=== PATIENT | female | born 1955 | race American Indian/Alaskan Native ===

== ENCOUNTER 2017-12-24 09:23 | Emergency (ER) | payer OTHER ==
[2017-12-24 09:23] VITALS: BMI 27.4
[2017-12-24 10:05] VITALS: RESP 18; TEMP 98.7
[2017-12-24 11:43] LABS: BASO # 0.01 K/mm3 (0.0-2.0); BASO % 0.1 % (0.0-3.0); EOS # 0.1 (0.0-0.7); EOS % 1.1 % (1.5-5.0); GRAN % 69.6 % (50.0-68.0); HEMOGLOBIN 13.1 g/dL (12.0-16.0); LYMPH # 2.3 (1.2-3.4); LYMPH % 23.3 % (22.0-35.0); MEAN CELL VOLUME 87.6 fl (80.0-105.0); MEAN CORPUSCULAR HGB CONC 33.1 g/dl (31.0-37.0); MEAN PLATELET VOLUME 10.9 fl (7.0-11.0); MONO # 0.6 (0.1-0.6); MONO % 5.9 % (1.0-6.0); RBC 4.52 10^6/uL (3.5-6.1); RED CELL DISTRIBUTION WIDTH 13.8 % (11.5-14.5); WHITE BLOOD COUNT 10.1 10^3/ul (4.5-11.0)
[2017-12-24 11:53] LABS: ALB/GLOB RATIO 1.3 (1.1-1.8); ALBUMIN 4.3 g/dL (3.0-4.8); ALT/SGPT 38 U/L (7-56); AST/SGOT 25 U/L (14-36); BLOOD UREA NITROGEN 12 mg/dL (7-21); CALCIUM 10.2 mg/dL (8.4-10.5); GFR AFRICAN-AMERICAN > 60; GFR NON-AFRICAN AMERICAN > 60
[2017-12-24 12:02] LABS: B-TYPE NATRIURETIC PEPTIDE 42.4 pg/mL (0-450)
--- NOTE | 2017-12-24 12:19 | RAD ---
HISTORY: cough COMPARISON: Comparison is made with 02/03/2016 TECHNIQUE: Chest PA and lateral FINDINGS: LUNGS: No active pulmonary disease. PLEURA: No significant pleural effusion identified. No pneumothorax apparent. CARDIOVASCULAR: Normal. OSSEOUS STRUCTURES: No significant abnormalities. VISUALIZED UPPER ABDOMEN: Normal. OTHER FINDINGS: None. IMPRESSION: No active disease.
--- NOTE | 2017-12-24 12:58 | ED PDOC ---
Arrival/HPI - General Chief Complaint: Cough, Cold, Congestion Time Seen by Provider: 12/24/17 10:07 Historian: Patient - History of Present Illness Narrative History of Present Illness (Text): 12/24/17 12:58 62yr old female presents today with 2 week history of cough, nasal congestion, sore throat, sneezing. pt denies cp or sob. no vomiting/diarrhea. denies dizziness or weakness. no sick contacts. pt denies abdominal pain. pt denies fever/chills. denies recent travel. denies leg pain or lower leg swelling. pt states she has been taking nyquil without relief. Time/Duration: > week (2) Symptom Onset: Gradual Symptom Course: Unchanged Past Medical History - Provider Review Nursing Documentation Reviewed: Yes - Travel History Have you recently traveled outside [place] w/in the past 3 mons?: No - Past History Past History: Non-Contributing - Infectious Disease Hx of Infectious Diseases: None - Reproductive Menopause: Yes - Past Medical History Past Medical History: No Previous - Integumentary Hx Dermatological Disorder: No - Musculoskeletal/Rheumatological Hx Musculoskeletal Disorders: No - Psychiatric Hx Substance Use: No - Past Surgical History Past Surgical History: No Previous - Anesthesia Hx Anesthesia: No - Suicidal Assessment Feels Threatened In Home Enviroment: No Family/Social History - Physician Review Nursing Documentation Reviewed: Yes Family/Social History: Unknown Family HX Smoking Status: Never Smoked Hx Alcohol Use: No Hx Substance Use: No Allergies/Home Meds Allergies/Adverse Reactions: Allergies No Known Allergies Allergy (Verified 01/22/16 10:33) Review of Systems - Review of Systems Constitutional: absent: Fatigue, Fevers ENT: Sore Throat, Sinus Congestion Respiratory: Cough. absent: SOB Cardiovascular: absent: Chest Pain, Palpitations Gastrointestinal: absent: Abdominal Pain, Nausea, Vomiting Genitourinary Female: absent: Dysuria, Frequency Musculoskeletal: absent: Arthralgias Skin: absent: Rash, Pruritis Neurological: absent: Headache, Dizziness Psychiatric: absent: Anxiety, Depression Physical Exam Vital Signs Reviewed: Yes Vital Signs Temp Pulse Resp BP Pulse Ox 12/24/17 12:59 75 18 144/75 99 12/24/17 10:01 98.7 F 90 18 140/80 98 Temperature: Afebrile Blood Pressure: Normal Pulse: Regular Respiratory Rate: Normal Appearance: Positive for: Well-Appearing, Non-Toxic, Comfortable Pain Distress: None Mental Status: Positive for: Alert and Oriented X 3 - Systems Exam Head: Present: Atraumatic Extroacular Muscles: Present: EOMI Conjunctiva: Present: Normal Ears: Present: Normal, NORMAL TM Mouth: Present: Moist Mucous Membranes. No: Drooling, Trismus Pharnyx: Present: Normal. No: ERYTHEMA, EXUDATE, TONSILS ENLARGED Nose (External): Present: Atraumatic Nose (Internal): Present: Normal Inspection Neck: Present: Normal Range of Motion Respiratory/Chest: Present: Clear to Auscultation, Good Air Exchange. No: Respiratory Distress, Accessory Muscle Use, Wheezes, Decreased Breath Sounds, Retracting, Tachypneic Cardiovascular: Present: Regular Rate and Rhythm. No: Murmurs Abdomen: No: Tenderness, Rebound, Guarding Back: Present: Normal Inspection. No: CVA Tenderness Lower Extremity: Present: Normal ROM Neurological: Present: GCS=15, Speech Normal Skin: Present: Warm, Dry, Normal Color. No: Rashes Psychiatric: Present: Alert, Oriented x 3 Medical Decision Making ED Course and Treatment: 12/24/17 14:01 Patient is nontoxic well-appearing in no distress. Vital signs are stable. cbc; wnl cmp; wnl bnp; wnl rapid flu; negative cxr; no infiltrate or effusion, no acute disease; as read by the radiologist. Zithromax po I advised follow up with primary care physician within the next 2 days. I advised increase fluids and return if symptoms worsen persist or if new symptoms develop. Patient verbalizes understanding of discharge instructions and need for immediate followup. all aspects of this case were discussed the attending of record. IMPRESSION; cough Motrin one tablet every 6 hours as needed for pain Zithromax one tablet once daily x4 days FLonase; 2 sprays each nostril once daily. Increase fluids Followup with primary care physician the next 2 days Return if symptoms worsen persist or if new symptoms develop - Lab Interpretations Lab Results: 12/24/17 11:30 12/24/17 11:30 Lab Results 12/24/17 11:30: WBC 10.1 D, RBC 4.52, Hgb 13.1, Hct 39.6, MCV 87.6, MCH 29.0, MCHC 33.1, RDW 13.8, Plt Count 252, MPV 10.9, Gran % 69.6 H, Lymph % (Auto) 23.3 , [place] % (Auto) 5.9, Eos % (Auto) 1.1 L, Baso % (Auto) 0.1, Gran # 7.00 H, Lymph # (Auto) 2.3, [place] # (Auto) 0.6, Eos # (Auto) 0.1, Baso # (Auto) 0.01 12/24/17 11:30: Sodium 145, Potassium 4.3, Chloride 105, Carbon Dioxide 28, Anion Gap 16, BUN 12, Creatinine 0.9, Est GFR ( Amer) > 60, Est GFR (Non- Af Amer) > 60, Random Glucose 88, Calcium 10.2, Total Bilirubin 0.4, AST 25, ALT 38, Alkaline Phosphatase 81, NT-Pro-B Natriuret Pep 42.4, Total Protein 7.6 , Albumin 4.3, Globulin 3.3, Albumin/Globulin Ratio 1.3 12/24/17 10:10: Influenza Typ A,B (EIA) Negative for flu a/b - RAD Interpretation Radiology Orders: 12/24/17 10:07 CHEST TWO VIEWS (PA/LAT) [RAD] Stat - Medication Orders Current Medication Orders: Discontinued Medications Azithromycin (Zithromax) 500 mg PO STAT STA PRN Reason: Protocol Stop: 12/24/17 12:29 Last Admin: 12/24/17 12:47 Dose: 500 mg Disposition/Present on Arrival - Present on Arrival Any Indicators Present on Arrival: No History of DVT/PE: No History of Uncontrolled Diabetes: No Urinary Catheter: No History of Decub. Ulcer: No History Surgical Site Infection Following: None - Disposition Have Diagnosis and Disposition been Completed?: Yes Diagnosis: Cough Disposition: HOME/ ROUTINE Disposition Time: 12:55 Patient Plan: Discharge Condition: GOOD Discharge Instructions (ExitCare): Cold Symptoms (ED), Acute Cough (ED) Additional Instructions: Motrin every 6 hours as needed for pain/fever reduction Zithromax one tablet once daily x4 days FLonase; 2 sprays each nostril once daily. Increase fluids Followup with primary care physician the next 2 days Return if symptoms worsen persist or if new symptoms develop: high fevers, chest pain, shortness of breath, dizziness, weakness, continued cough or if any other concerning symptoms develop. Prescriptions: Azithromycin [Zithromax] 250 mg PO DAILY #4 tab Fluticasone Nasal [Flonase] 2 spr NS DAILY #1 spr Referrals: Romie Zhao MD [Staff Provider] - Follow up with primary Faraz Zavala MD [Staff Provider] - Follow up with primary Forms: [employer] (Greek)
[2017-12-24 13:00] VITALS: BP 144/75; PULSE 75; O2SAT 99
== END 2017-12-24 13:02 | disposition home or self-care (01) ==
LOC: ED 09:23
DX: R05 Cough (principal)

== ENCOUNTER 2018-06-03 12:32 | Emergency (ER) | payer OTHER ==
[2018-06-03 12:41] VITALS: TEMP 98.4; BMI 34.3
[2018-06-03 13:43] LABS: BASO # 0.01 K/mm3 (0.0-2.0); BASO % 0.1 % (0.0-3.0); EOS # 0.2 (0.0-0.7); EOS % 1.7 % (1.5-5.0); GRAN # 9.73 (1.4-6.5); GRAN % 75.7 % (50.0-68.0); HEMOGLOBIN 13.3 g/dL (12.0-16.0); LYMPH # 2.4 (1.2-3.4); LYMPH % 18.8 % (22.0-35.0); MEAN CELL VOLUME 84.4 fl (80.0-105.0); MEAN CORPUSCULAR HEMOGLOBIN 28.9 pg (25.0-35.0); MEAN CORPUSCULAR HGB CONC 34.2 g/dl (31.0-37.0); MEAN PLATELET VOLUME 10.3 fl (7.0-11.0); MONO # 0.5 (0.1-0.6); MONO % 3.7 % (1.0-6.0); RBC 4.61 10^6/uL (3.5-6.1); RED CELL DISTRIBUTION WIDTH 13.8 % (11.5-14.5); WHITE BLOOD COUNT 12.8 10^3/ul (4.5-11.0)
[2018-06-03 13:52] LABS: ALB/GLOB RATIO 1.3 (1.1-1.8); ALBUMIN 4.4 g/dL (3.0-4.8); ALT/SGPT 29 U/L (7-56); AST/SGOT 19 U/L (14-36); BLOOD UREA NITROGEN 8 mg/dL (7-21); CALCIUM 9.6 mg/dL (8.4-10.5); GFR AFRICAN-AMERICAN > 60; GFR NON-AFRICAN AMERICAN > 60
--- NOTE | 2018-06-03 13:56 | RAD ---
Date of service: 06/03/2018 HISTORY: cough COMPARISON: 12/24/2017 TECHNIQUE: Chest PA and lateral FINDINGS: LUNGS: No active pulmonary disease. PLEURA: No significant pleural effusion identified. No pneumothorax apparent. CARDIOVASCULAR: Normal. OSSEOUS STRUCTURES: No significant abnormalities. VISUALIZED UPPER ABDOMEN: Normal. OTHER FINDINGS: None. IMPRESSION: No active disease.
--- NOTE | 2018-06-03 15:04 | ED PDOC ---
Arrival/HPI - General Chief Complaint: Flu-like Symptoms Time Seen by Provider: 06/03/18 13:11 Historian: Patient - History of Present Illness Narrative History of Present Illness (Text): 06/03/18 15:08 62-year-old female otherwise healthy presents today with an 8 day history of sore throat and nasal congestion and cough. Patient denies chest pain or shortness of breath. Patient given denies fevers but states she's been having chills at home. Patient describes a sore throat as a achy burning pain worse with swallowing. Denies any difficulty swallowing. Denies feeling of throat closing. Patient complaining of generalized body aches. No sick contacts. No medications have been taken at home. No nausea vomiting diarrhea constipation. No other complaints Past Medical History - Provider Review Nursing Documentation Reviewed: Yes - Travel History Have you recently traveled outside [place] w/in the past 3 mons?: No - Past History Past History: Non-Contributing - Infectious Disease Hx of Infectious Diseases: None - Reproductive Menopause: Yes - Past Medical History Past Medical History: No Previous - Cardiac Hx Cardiac Disorders: No - Pulmonary Hx Respiratory Disorders: No - Neurological Hx Neurological Disorder: No - HEENT Hx HEENT Disorder: No - Renal Hx Renal Disorder: No - Endocrine/Metabolic Hx Endocrine Disorders: No - Hematological/Oncological Hx Blood Disorders: No - Integumentary Hx Dermatological Disorder: No - Musculoskeletal/Rheumatological Hx Musculoskeletal Disorders: No - Gastrointestinal Hx Gastrointestinal Disorders: No - Genitourinary/Gynecological Hx Genitourinary Disorders: No - Psychiatric Hx Psychophysiologic Disorder: No Hx Substance Use: No - Past Surgical History Past Surgical History: No Previous - Anesthesia Hx Anesthesia: No - Suicidal Assessment Feels Threatened In Home Enviroment: No Family/Social History - Physician Review Nursing Documentation Reviewed: Yes Family/Social History: Unknown Family HX Smoking Status: Never Smoked Hx Alcohol Use: No Hx Substance Use: No Allergies/Home Meds Allergies/Adverse Reactions: Allergies No Known Allergies Allergy (Verified 01/22/16 10:33) Review of Systems - Review of Systems Constitutional: Other (bodyaches). absent: Fatigue, Fevers ENT: Sore Throat, Sinus Congestion Respiratory: Cough. absent: SOB Cardiovascular: absent: Chest Pain Gastrointestinal: absent: Abdominal Pain, Nausea, Vomiting Genitourinary Female: absent: Dysuria Musculoskeletal: absent: Arthralgias Skin: absent: Rash, Pruritis Neurological: absent: Headache, Dizziness Psychiatric: absent: Anxiety, Depression Physical Exam Vital Signs Reviewed: Yes Vital Signs Temp Pulse Resp BP Pulse Ox 06/03/18 12:38 98.4 F 86 17 131/79 100 Temperature: Afebrile Blood Pressure: Normal Pulse: Regular Respiratory Rate: Normal Appearance: Positive for: Well-Appearing, Non-Toxic, Comfortable Pain Distress: None Mental Status: Positive for: Alert and Oriented X 3 - Systems Exam Head: Present: Atraumatic Conjunctiva: Present: Normal Ears: Present: Normal, NORMAL TM, Erythema Mouth: Present: Moist Mucous Membranes, Normal Lips, Normal Tounge. No: Drooling, Trismus Pharnyx: Present: Normal. No: ERYTHEMA, EXUDATE, TONSILS ENLARGED, Peritonsilar Swelling, Uvular Deviation, Muffled/Hoarse Voice, Strider Nose (External): Present: Atraumatic Nose (Internal): Present: Normal Inspection Neck: Present: Normal Range of Motion, Trachea Midline. No: Lymphadenopathy Respiratory/Chest: Present: Clear to Auscultation, Good Air Exchange. No: Respiratory Distress, Accessory Muscle Use Cardiovascular: Present: Regular Rate and Rhythm, Normal S1, S2. No: Murmurs Abdomen: No: Tenderness, Distention, Rebound, Guarding Neurological: Present: GCS=15, Speech Normal Skin: Present: Warm, Dry, Normal Color. No: Rashes Psychiatric: Present: Alert, Oriented x 3 Medical Decision Making ED Course and Treatment: 06/03/18 15:10 Patient is nontoxic well appearing in no distress. Vital signs are stable CBC White blood cell count 12.8 CMP within normal limits Chest x-ray no infiltrate or effusion Blood cultures pending Motrin Tylenol and Zithromax given by mouth Patient reassessment: Patient is nontoxic well. No distress I advised follow up with primary care physician within the next 2 days, advised to increase fluids take medications as prescribed and return if symptoms worsen persist or if new symptoms develop. Patient verbalizes understanding of discharge instructions and need for immediate followup. all aspects of this case were discussed the attending of record. IMPRESSION; pharyngitis, cough Motrin one tablet every 6 hours as needed for pain Zithromax one tablet once daily x4 days Increase fluids Saltwater gargles, throat lozenges Followup with primary care physician the next 2 days Return if symptoms worsen persist or if new symptoms develop - Lab Interpretations Lab Results: 06/03/18 13:25 06/03/18 13:25 Lab Results 06/03/18 13:25: WBC 12.8 H D, RBC 4.61, Hgb 13.3, Hct 38.9, MCV 84.4 D, MCH 28.9, MCHC 34.2, RDW 13.8, Plt Count 221, MPV 10.3, Gran % 75.7 H, Lymph % (Auto ) 18.8 L, [place] % (Auto) 3.7, Eos % (Auto) 1.7, Baso % (Auto) 0.1, Gran # 9.73 H , Lymph # (Auto) 2.4, [place] # (Auto) 0.5, Eos # (Auto) 0.2, Baso # (Auto) 0.01 06/03/18 13:25: Sodium 145, Potassium 3.9, Chloride 106, Carbon Dioxide 26, Anion Gap 16, BUN 8, Creatinine 0.9, Est GFR ( Amer) > 60, Est GFR (Non- Af Amer) > 60, Random Glucose 105, Calcium 9.6, Total Bilirubin 0.4, AST 19, ALT 29, Alkaline Phosphatase 83, Total Protein 7.8, Albumin 4.4, Globulin 3.4, Albumin/Globulin Ratio 1.3 - RAD Interpretation Radiology Orders: 06/03/18 13:11 CHEST TWO VIEWS (PA/LAT) [RAD] Stat - Medication Orders Current Medication Orders: Azithromycin (Zithromax) 500 mg PO STAT STA PRN Reason: Protocol Stop: 06/03/18 15:00 Disposition/Present on Arrival - Present on Arrival Any Indicators Present on Arrival: No History of DVT/PE: No History of Uncontrolled Diabetes: No Urinary Catheter: No History of Decub. Ulcer: No History Surgical Site Infection Following: None - Disposition Have Diagnosis and Disposition been Completed?: Yes Diagnosis: Acute pharyngitis, Cough Disposition: HOME/ ROUTINE Disposition Time: 15:00 Patient Plan: Discharge Patient Problems: Current Active Problems Problem Status Onset Acute pharyngitis Acute Cough Acute Condition: GOOD Discharge Instructions (ExitCare): Cough in Adults, Sore Throat in Adults Additional Instructions: Motrin one tablet every 6 hours as needed for pain Zithromax one tablet once daily x4 days Increase fluids Saltwater gargles, throat lozenges Followup with primary care physician the next 2 days Return if symptoms worsen persist or if new symptoms develop Prescriptions: Azithromycin [Zithromax] 250 mg PO DAILY #4 tab Ibuprofen [Motrin] 600 mg PO Q6H PRN #20 tab PRN Reason: pain/fever reduction Referrals: Elvie Murphy MD [Staff Provider] - Follow up with primary [facility] [Outside] - Follow up with primary Forms: [employer] (Upper Sorbian), WORK NOTE
[2018-06-03 15:32] VITALS: BP 132/73; PULSE 88; RESP 18; O2SAT 99
== END 2018-06-03 15:31 | disposition home or self-care (01) ==
LOC: ED 12:32
DX: J02.9 Acute pharyngitis, unspecified (principal); R05 Cough

== ENCOUNTER 2018-10-28 08:24 | Emergency (ER) | payer OTHER ==
[2018-10-28 08:24] VITALS: BMI 34.3
[2018-10-28] MEDS ORDERED: Naproxen 550 mg Tab PO STA (08:45)
--- NOTE | 2018-10-28 08:47 | ED PDOC ---
Arrival/HPI - General Chief Complaint: Upper Extremity Problem/Injury Time Seen by Provider: 10/28/18 08:34 Historian: Patient - History of Present Illness Narrative History of Present Illness (Text): 10/28/18 08:46 A 62 year old female with no significant past medical history presents to the emergency department complaining of right shoulder pain since a few days ago. Patient reports pain is worse with abduction. Patient is drinking coffee with no acute distress. Patient denies any fever, chills, shortness of breath, chest pain, diarrhea, nausea, vomiting, urinary symptoms, back pain, neck pain, headache, dizziness, or any other complaints. No PMD Time/Duration: Other (a few days) Symptom Onset: Gradual Activities at Onset: Light Context: Home Past Medical History - Provider Review Nursing Documentation Reviewed: Yes - Past History Past History: Non-Contributing - Infectious Disease Hx of Infectious Diseases: None - Reproductive Menopause: Yes - Past Medical History Past Medical History: No Previous - Cardiac Hx Cardiac Disorders: No - Pulmonary Hx Respiratory Disorders: No - Neurological Hx Neurological Disorder: No - HEENT Hx HEENT Disorder: No - Renal Hx Renal Disorder: No - Endocrine/Metabolic Hx Endocrine Disorders: No - Hematological/Oncological Hx Blood Disorders: No - Integumentary Hx Dermatological Disorder: No - Musculoskeletal/Rheumatological Hx Musculoskeletal Disorders: No - Gastrointestinal Hx Gastrointestinal Disorders: No - Genitourinary/Gynecological Hx Genitourinary Disorders: No - Psychiatric Hx Psychophysiologic Disorder: No Hx Substance Use: No - Past Surgical History Past Surgical History: No Previous - Anesthesia Hx Anesthesia: No Hx Anesthesia Reactions: No Hx Malignant Hyperthermia: No - Suicidal Assessment Feels Threatened In Home Enviroment: No Family/Social History - Physician Review Nursing Documentation Reviewed: Yes Family/Social History: No Known Family HX Smoking Status: Never Smoked Hx Alcohol Use: No Hx Substance Use: No Allergies/Home Meds Allergies/Adverse Reactions: Allergies No Known Allergies Allergy (Verified 10/28/18 08:37) Review of Systems - Physician Review All systems were reviewed & negative as marked: Yes - Review of Systems Constitutional: absent: Fevers, Night Sweats Respiratory: absent: SOB Cardiovascular: absent: Chest Pain Gastrointestinal: absent: Diarrhea, Nausea, Vomiting Genitourinary Female: absent: Urine Output Changes Musculoskeletal: Other (Right shoulder pain). absent: Back Pain, Neck Pain Neurological: absent: Headache, Dizziness Physical Exam Vital Signs Reviewed: Yes Vital Signs Temp Pulse Resp BP Pulse Ox 10/28/18 08:34 98.3 F 78 19 159/92 H 97 Temperature: Afebrile Blood Pressure: Hypertensive Pulse: Regular Respiratory Rate: Normal Appearance: Positive for: Well-Appearing, Non-Toxic Pain Distress: None - Systems Exam Head: Present: Atraumatic, Normocephalic Pupils: Present: PERRL Extroacular Muscles: Present: EOMI Conjunctiva: Present: Normal Neck: Present: Normal Range of Motion Respiratory/Chest: Present: Clear to Auscultation, Good Air Exchange. No: Respiratory Distress, Accessory Muscle Use Cardiovascular: Present: Regular Rate and Rhythm, Normal S1, S2. No: Murmurs Abdomen: No: Tenderness, Distention, Peritoneal Signs Back: Present: Normal Inspection Upper Extremity: Present: Tenderness (+right shoulder tenderness), Other (+pain with abduction) Lower Extremity: Present: Normal Inspection. No: Edema Neurological: Present: GCS=15, CN II-XII Intact, Speech Normal Skin: Present: Warm, Dry, Normal Color. No: Rashes Psychiatric: Present: Alert, Oriented x 3, Normal Insight, Normal Concentration Medical Decision Making ED Course and Treatment: 10/28/18 08:49 Impression: 62 year old female presenting with right shoulder pain. Plan: -- Anaprox -- Xray of right shoulder -- Reassess and disposition Prior Visits: Notes and results from previous visits were reviewed. Progress Notes: 10/28/18 12:03 xr neg as read by me suspect rotator cuff injury yojana coyne advise outpt fu. pain with abduction. - RAD Interpretation Radiology Orders: 10/28/18 08:45 SHOULDER RIGHT [RAD] Stat - Medication Orders Current Medication Orders: Naproxen (Anaprox Ds) 550 mg PO STAT STA Stop: 10/28/18 08:46 - Scribe Statement The provider has reviewed the documentation as recorded by the Scribroque Hoffmann All medical record entries made by the Scribe were at my direction and personally dictated by me. I have reviewed the chart and agree that the record accurately reflects my personal performance of the history, physical exam, medical decision making, and the department course for this patient. I have also personally directed, reviewed, and agree with the discharge instructions and disposition. Disposition/Present on Arrival - Present on Arrival Any Indicators Present on Arrival: No History of DVT/PE: No History of Uncontrolled Diabetes: No Urinary Catheter: No History of Decub. Ulcer: No History Surgical Site Infection Following: None - Disposition Have Diagnosis and Disposition been Completed?: Yes Diagnosis: Shoulder pain Disposition: HOME/ ROUTINE Disposition Time: 09:50 Condition: STABLE Discharge Instructions (ExitCare): Rotator Cuff Injury, Shoulder Pain (DC) Additional Instructions: follow up with specialist. return to er with worsening symptoms or concerns. Prescriptions: RX: Naproxen 500 mg PO BID PRN #14 tablet PRN Reason: Pain, Mild (1-3) Referrals: [facility] [Outside] - Follow up with primary [facility] [place] - Follow up with primary [facility] at [facility] [Outside] - Follow up with primary [facility] [place] [Outside] - Follow up with primary Kosta Espinoza III, MD [Medical Doctor] - Follow up with primary Forms: [employer] (Armenian)
[2018-10-28 08:53] VITALS: RESP 18; O2SAT 99
[2018-10-28 09:52] VITALS: BP 152/79; PULSE 67; TEMP 98.2
--- NOTE | 2018-10-28 10:57 | RAD ---
Date of service: 10/28/2018 PROCEDURE: Radiographs of the Right Shoulder HISTORY: Pain. No history of recent/ related trauma provided COMPARISON: No prior. FINDINGS: BONES: Normal. No fracture. JOINTS: Preserved glenohumeral relationship, acromioclavicular degenerative change: Mild. SOFT TISSUES: Normal. OTHER FINDINGS: None. IMPRESSION: No acute findings related to/ accounting for the clinical presentation.
== END 2018-10-28 09:42 | disposition home or self-care (01) ==
LOC: ED 08:24
DX: M25.511 Pain in right shoulder (principal)